=== PATIENT | female | born 1980 | race Caucasian/White ===

== ENCOUNTER 2023-10-29 06:09 | Outpatient (RCR) | payer OTHER, SELFPAY | END 2023-10-29 23:59 | disposition home or self-care (01) | LOC: RPT 06:09 | PROVIDERS: ATTENDING PHYSICIAN Obstetrics & Gynecology | DX: N39.3 Stress incontinence (female) (male) (principal); N39.41 Urge incontinence; R39.15 Urgency of urination; M62.89 Other specified disorders of muscle; Z73.6 Limitation of activities due to disability; R27.8 Other lack of coordination; M62.81 Muscle weakness (generalized); R10.2 Pelvic and perineal pain | CPT/HCPCS: 97014; 97112; 97140; 97162; 97530 ==

== ENCOUNTER 2023-11-30 16:11 | Outpatient (RCR) | payer OTHER, SELFPAY | END 2023-11-30 23:59 | disposition home or self-care (01) | LOC: RPT 16:11 | PROVIDERS: ATTENDING PHYSICIAN Obstetrics & Gynecology | DX: N39.3 Stress incontinence (female) (male) (principal); N39.41 Urge incontinence; R39.15 Urgency of urination; M62.89 Other specified disorders of muscle; Z73.6 Limitation of activities due to disability; R27.8 Other lack of coordination; M62.81 Muscle weakness (generalized); R10.2 Pelvic and perineal pain | CPT/HCPCS: 97014; 97112; 97530 ==

== ENCOUNTER 2023-12-24 08:09 | Outpatient (RCR) | payer OTHER, SELFPAY | END 2023-12-24 23:59 | disposition home or self-care (01) | LOC: RPT 08:09 | PROVIDERS: ATTENDING PHYSICIAN Obstetrics & Gynecology | DX: N39.3 Stress incontinence (female) (male) (principal); N39.41 Urge incontinence; R39.15 Urgency of urination; M62.89 Other specified disorders of muscle; Z73.6 Limitation of activities due to disability; R27.8 Other lack of coordination; M62.81 Muscle weakness (generalized); R10.2 Pelvic and perineal pain | CPT/HCPCS: 97014; 97112; 97530 ==

== ENCOUNTER 2024-01-29 06:17 | Outpatient (RCR) | payer OTHER, SELFPAY | END 2024-01-29 23:59 | disposition home or self-care (01) | LOC: RPT 06:17 | PROVIDERS: ATTENDING PHYSICIAN Obstetrics & Gynecology | DX: N39.3 Stress incontinence (female) (male) (principal); N39.41 Urge incontinence; R39.15 Urgency of urination; M62.89 Other specified disorders of muscle; Z73.6 Limitation of activities due to disability; R27.8 Other lack of coordination; M62.81 Muscle weakness (generalized); R10.2 Pelvic and perineal pain | CPT/HCPCS: 97014; 97112; 97530 ==

== ENCOUNTER 2024-02-09 08:37 | Outpatient (RCR) | payer OTHER, SELFPAY | END 2024-02-09 23:59 | disposition home or self-care (01) | LOC: RPT 08:37 | PROVIDERS: ATTENDING PHYSICIAN Obstetrics & Gynecology | DX: N39.3 Stress incontinence (female) (male) (principal); N39.41 Urge incontinence; R39.15 Urgency of urination; M62.89 Other specified disorders of muscle; Z73.6 Limitation of activities due to disability; R27.8 Other lack of coordination; M62.81 Muscle weakness (generalized); R10.2 Pelvic and perineal pain | CPT/HCPCS: 97014; 97112; 97530 ==

== ENCOUNTER → 2024-12-22 08:52 | Outpatient (REF) | payer OTHER, SELFPAY | LOC: WDC 08:52 | PROVIDERS: ATTENDING PHYSICIAN Obstetrics & Gynecology; FAMILY PHYSICIAN Nurse Practitioner | DX: R92.8 Other abnormal and inconclusive findings on diagnostic imaging of breast (principal) | CPT/HCPCS: 76642; 77061; 77065 ==